=== PATIENT | male | born 1955 | race Caucasian/White ===

== ENCOUNTER 2020-03-08 21:08 | Observation (INO) ==
--- OUTSIDE RECORDS SUMMARY | 2020-03-08 21:12 | External Medical Summary | Continuity of Care Document ---
:1955 Author Name Hilario San, Provider Address Unavailable Unavailable , Care Team Providers Name Role Phone Nila San, Fernando Mcgovern Unavailable [email or web address] Unavailable Unavailable Unavailable Unavailable Unavailable Problems Active medical history not documented Allergies and Adverse Reactions Allergy history not documented Medications Medications not documented Procedures Procedures not documented Immunizations Immunizations not documented Plan of Treatment Planned Observations Planned Goals not documented Results No Known Results Results not documented Encounters Appointment; Fernando Dotson M.D. 25-Jan-2011 14:45 Encounter Diagnosis: Problem not documented
[2020-03-08] MEDS ORDERED: SODIUM CHLORIDE 0.9% 1000ML 500 ML IV ONE (21:22)
[2020-03-08] MEDS ORDERED: diphenhydrAMINE 50 MG/ML VIAL IV STA (21:22)
[2020-03-08] MEDS ORDERED: LORazepam 0.5 MG/1 ML VIAL IV STA (21:22)
--- NOTE | 2020-03-08 21:29 | Emergency Department Note ---
Impression & Plan Dizziness, Nausea, Diaphoresis, SOB (shortness of breath), Stroke-like symptoms ED Provider Note NAME: JOHN SHAFFER AGE: 65 SEX: M : 1955 ARRIVES VIA: Ambulance INFORMANT: [Patient][ems] ED PROVIDER(S): [Lonnie Robertson MD] Patient initially seen by me at 2114. CHIEF COMPLAINT: Nausea, shortness of breath HISTORY OF PRESENT ILLNESS: The patient is a 65-year-old male who states that about an hour and a half ago while sitting, he suddenly began feeling nauseated, he began to sweat and felt dizzy. He could barely lift his head without feeling even more dizzy. His chest became tight. On the way here, he was given IV Zofran with some improvement of symptoms. He feels better than before although still somewhat tight across the chest and somewhat dizzy. He feels somewhat short of breath. There was no chest pain. He has not been coughing, no cold like symptoms, no flu symptoms. The patient has not had weakness in 1 arm or 1 leg. He has not had difficulty with his speech, he does have some stiffness to his neck but he thinks it is because of the way he was moving his head and neck earlier. The patient has no history of coronary or cerebrovascular disease. REVIEW OF SYSTEMS: See HPI for pertinent positives and negatives. A total of ten systems were reviewed and were otherwise negative. PMHx/PSHx: See Below SOCIAL HISTORY: See Below. PHYSICAL EXAM: GENERAL: Patient is in mild distress, hyperventilating, seems anxious. HEENT: No acute trauma, normocephalic atraumatic, mucous membranes moist, no nasal congestion, no scleral icterus. No nystagmus. NECK: No stridor, no adenopathy, no meningismus, trachea is midline. There is some tenderness to palpate the posterior neck muscles, especially on the right. LUNGS: Clear to auscultation bilaterally, no wheeze, no rhonchi, breath sounds equal. Increased respiratory rate, hyperventilating. HEART: Without murmurs gallops or rubs, regular rate and rhythm. ABDOMEN: Soft, nontender, bowel sounds positive, no hernias, no peritonitis. EXTREMITIES: No cyanosis, full range of motion of all the joints without pain or difficulty, no signs for acute trauma. NEUROLOGIC: Oriented x 3, no acute motor or sensory deficits, no focal weakness. No speech slur or facial droop. No extremity drift, no cerebellar dysfunction, no pronator drift. SKIN: No rash, no jaundice, no diaphoresis. DIFFERENTIAL DIAGNOSIS: Infection, dehydration, metabolic abnormality, hypo/hyperglycemia, vertigo, stroke, TIA, electrolyte disturbance, anemia, hypoxia, cardiac sources, intra cerebral event, toxicologic, neurologic, as well as other pathologies. EMERGENCY DEPARTMENT COURSE/PROCEDURES: ECG: Indication was possible stroke. The ECG shows a normal sinus rhythm with a rate of 73. There is no ST elevation, no PVCs. The QTc is 436. Continuous Cardiac Monitoring: An order was placed for continuous cardiac monitoring. The monitor shows a rate of 85 with normal sinus rhythm. Critical Care Note: I have personally spent 41 minutes of critical care time in the direct management of this patient. This includes bedside care, interpretation of diagnostic studies, and testing, discussion with consultants, patient, and family members, and other required patient management activities. This 41 minutes is in excess of all separately billable procedures. MEDICAL DECISION MAKING: There is a normal white blood cell count. There is a normal hemoglobin and platelet count. There is no coagulopathy. No significant electrolyte abnormality or kidney failure. No worrisome liver enzyme elevation. ECG shows a sinus rhythm, no acute ischemia. Cardiac enzyme testing x1 is not consistent with acute cardiac injury. Urinalysis does not show infection. Chest x-ray does not show pneumonia or CHF. Brain CT shows no acute bleed or mass-effect. CT angio of the head and neck were performed, there was no aneurysm, no thrombosis, no significant stenosis. On exam, the patient did not have any focal neurologic findings. No cerebellar findings. He had a very difficult time with his balance and with any type of transfer from one stretcher to the other. In short, the patient is improved but not back to baseline. Patient may be suffering from vertigo, this certainly could be a subtle posterior circulation stroke affecting his cerebellar system. I am not co mfortable with discharge, further further work-up is warranted. The patient would benefit from an MRI and and observation. A neurology consult may be of benefit. The patient was given IV Ativan to help with his dizziness. He received IV Benadryl to help with his dizziness. He was given a 500 cc saline bolus. Patient does feel the medications administered helped his symptoms. I did speak with the patient, he is currently resting comfortably. He does not meet criteria for TPA. His stroke scale is 0. Further work-up is warranted. I did speak with case management. The on-call hospitalist was consulted. Past Med/Surg History Medical History No significant past medical history Social History Smoking Status: Former smoker Preferred Language: Azerbaijani Feels Safe at Home: Yes Allergies Allergies Allergy/AdvReac Type Severity Reaction Status Date / Time No Known Allergies Allergy Verified 03/08/20 22:16 Home Meds Home Medications Medication Instructions Recorded Confirmed No Known Home Medications 03/08/20 03/08/20 Results & Data (ED) Vital Signs Vital Signs - 24 hr 03/08/20 21:08 03/08/20 21:42 03/08/20 22:17 Temperature 36.5 C Temperature Source Oral Pulse Rate 74 74 87 Pulse Rate from SpO2 Sensor Respiratory Rate 26 H 20 17 Blood Pressure 132/89 134/81 113/74 Blood Pressure Mean 103 96 77 Pulse Oximetry 100 98 100 Oxygen Delivery Method Room Air Sepsis Recent Fever Within 48 Hours No Sepsis New/Unexplained Change in Mental Status No Sepsis Action Taken by Nursing No Action Required 03/08/20 22:30 03/08/20 22:31 03/08/20 23:00 Temperature Temperature Source Pulse Rate 85 85 79 Pulse Rate from SpO2 Sensor 83 87 Respiratory Rate 20 18 Blood Pressure 137/74 110/64 Blood Pressure Mean 97 78 Pulse Oximetry 99 100 99 Oxygen Delivery Method Sepsis Recent Fever Within 48 Hours Sepsis New/Unexplained Change in Mental Status Sepsis Action Taken by [facility] Medications Current Medication List: was personally reviewed by me Laboratory Data Attestation: I reviewed the patient's lab results. Result diagrams: 03/08/20 21:20 03/08/20 21:20 Lab Results 03/08/20 03/08/20 03/08/20 Range/Units 21:20 21:20 21:20 WBC 6.50 (4.8-10.8) K/uL RBC 4.50 L (4.7-6.1) M/uL Hgb 14.0 (14.0-18.0) g/dL Hct 40.3 L (42-52) % MCV 89.6 (80-100) fL MCH 31.1 (25-34) pg MCHC 34.7 (32-36) g/dL RDW Std Deviation 44.2 (36.4-46.3) fL RDW Coeff of Archie 13.4 (11.5-14.5) % Plt Count 212 (130-400) K/uL MPV 9.6 (7.4-10.4) fL Immature Gran % (Auto) 0.2 % Neut % (Auto) 59.4 % Lymph % (Auto) 32.2 % [place] % (Auto) 5.1 % Eos % (Auto) 2.8 % Baso % (Auto) 0.3 % Neut # (Auto) 3.87 (1.4-6.5) K/uL Lymph # (Auto) 2.09 (1.2-3.4) K/uL [place] # (Auto) 0.33 (0.11-0.59) K/uL Eos # (Auto) 0.18 (0-0.5) K/uL Baso # (Auto) 0.02 (0-0.2) K/uL Immature Gran # (Auto) 0.01 (0.00-0.02) K/uL PT 10.3 (9.0-12.0) Seconds INR 1.0 (0.9-1.1) APTT 25.0 (21.0-31.0) Seconds PTT Ratio 0.9 Sodium 142 (136-145) mmol/L Potassium 3.5 (3.5-5.1) mmol/L Chloride 110 H (98-107) mmol/L Carbon Dioxide 23 (21-32) mmol/L Anion Gap 9.0 (3-11) BUN 16 (7-18) mg/dl Creatinine 1.32 (0.6-1.4) mg/dl Est Cr Clr Drug Dosing 74.5 ml/min Est GFR ( Amer) 66.1 Est GFR (Non-Af Amer) 57.0 BUN/Creatinine Ratio 12.3 (10-20) Glucose 147 H (70-99) mg/dl POC Glucose (70-99) mg/dl Calcium 8.8 (8.5-10.1) mg/dl Magnesium 2.1 (1.8-2.4) mg/dl Total Bilirubin 0.3 (0.2-1) mg/dl AST 17 (15-37) U/L ALT 25 (12-78) U/L Alkaline Phosphatase 57 (45-117) U/L Troponin I < 0.015 (0-0.045) ng/ml Total Protein 7.2 (6.4-8.2) gm/dl Albumin 3.6 (3.4-5.0) gm/dl Globulin 3.6 (2.5-4.0) gm/dl Albumin/Globulin Ratio 1.0 (0.9-2) Urine Color Urine Appearance (Clear) Urine pH (4.5-7.5) Ur Specific Marshall (1.000-1.030) Urine Protein (Negative) Urine Glucose (UA) (Negative) Urine Ketones (Negative) Urine Blood (Negative) Urine Nitrite (Negative) Urine Bilirubin (Negative) Urine Urobilinogen (Negative) Ur Leukocyte Esterase (Negative) Blood Type Antibody Screen 03/08/20 03/08/20 03/08/20 Range/Units 21:48 21:49 22:42 WBC (4.8-10.8) K/uL RBC (4.7-6.1) M/uL Hgb (14.0-18.0) g/dL Hct (42-52) % MCV (80-100) fL MCH (25-34) pg MCHC (32-36) g/dL RDW Std Deviation (36.4-46.3) fL RDW Coeff of Archie (11.5-14.5) % Plt Count (130-400) K/uL MPV (7.4-10.4) fL Immature Gran % (Auto) % Neut % (Auto) % Lymph % (Auto) % [place] % (Auto) % Eos % (Auto) % Baso % (Auto) % Neut # (Auto) (1.4-6.5) K/uL Lymph # (Auto) (1.2-3.4) K/uL [place] # (Auto) (0.11-0.59) K/uL Eos # (Auto) (0-0.5) K/uL Baso # (Auto) (0-0.2) K/uL Immature Gran # (Auto) (0.00-0.02) K/uL PT (9.0-12.0) Seconds INR (0.9-1.1) APTT (21.0-31.0) Seconds PTT Ratio Sodium (136-145) mmol/L Potassium (3.5-5.1) mmol/L Chloride (98-107) mmol/L Carbon Dioxide (21-32) mmol/L Anion Gap (3-11) BUN (7-18) mg/dl Creatinine (0.6-1.4) mg/dl Est Cr Clr Drug Dosing ml/min Est GFR ( Amer) Est GFR (Non-Af Amer) BUN/Creatinine Ratio (10-20) Glucose (70-99) mg/dl POC Glucose 96 (70-99) mg/dl Calcium (8.5-10.1) mg/dl Magnesium (1.8-2.4) mg/dl Total Bilirubin (0.2-1) mg/dl AST (15-37) U/L ALT (12-78) U/L Alkaline Phosphatase (45-117) U/L Troponin I (0-0.045) ng/ml Total Protein (6.4-8.2) gm/dl Albumin (3.4-5.0) gm/dl Globulin (2.5-4.0) gm/dl Albumin/Globulin Ratio (0.9-2) Urine Color Yellow Urine Appearance Clear (Clear) Urine pH 6.5 (4.5-7.5) Ur Specific Marshall 1.039 H (1.000-1.030) Urine Protein Negative (Negative) Urine Glucose (UA) Negative (Negative) Urine Ketones Trace H (Negative) Urine Blood Negative (Negative) Urine Nitrite Negative (Negative) Urine Bilirubin Negative (Negative) Urine Urobilinogen Negative (Negative) Ur Leukocyte Esterase Negative (Negative) Blood Type B Positive Antibody Screen NEGATIVE Administered Medications Discontinued Medications Diphenhydramine HCl (Diphenhydramine 50 Mg/Ml Vial) 12.5 mg IV NOW STA Stop: 03/08/20 21:23 Last Admin: 03/08/20 21:39 Dose: 12.5 mg Documented by: [id number] Sodium Chloride (Nss 1000ml) 500 mls @ 999 mls/hr IV .Q31M ONE Stop: 03/08/20 21:52 Last Infusion: 03/08/20 22:17 Dose: 0 mls/hr Documented by: [id number] Admin: 03/08/20 21:39 Dose: 999 mls/hr Documented by: [id number] Lorazepam (Ativan) 0.5 mg in 1 mls @ 1 mls/min IV NOW STA Stop: 03/08/20 21:23 Last Admin: 03/08/20 21:39 Dose: 1 mls/min Documented by: [id number] Ioversol (Optiray 320 125ml) 119 ml IV ONCE ONE Stop: 03/08/20 22:05 Last Admin: 03/08/20 22:05 Dose: 119 ml Documented by: [id number] Imaging Data Attestation: I personally reviewed and interpreted this imaging study as follows: My Impression: Chest film: There is no mediastinal widening, pneumonia or pneumothorax. No free air. Radiologist's Impression: Brain CT: There is no intracranial hemorrhage or mass- effect, there is no edema. No evidence for acute territorial infarct. No skull fracture. The sinuses and mastoid air cells are clear. CT angio of the head: Patent intracranial circulation. No central large vessel occlusion. No aneurysm. CT angio of the neck: There is no evidence for high-grade right ICA stenosis. Evaluation of the right ICA is limited by motion artifact. There may be some mild stenosis of the proximal right ICA although this appearance is favored to be secondary to motion. The common carotid arteries are patent and normal in caliber. There is conventional aortic arch anatomy. The left ICA is patent and normal in caliber. The vertebral arteries are patent and normal in caliber. Discharge Plan Visit Data Chief Complaint: Cardiac Assessment Stated Complaint: NAUSEA, SOB, DIZZINESS ED Provider: Lonnie Robertson Discharge Problem: Dizziness, Nausea, Diaphoresis, SOB (shortness of breath), Stroke-like symptoms Patient Disposition: Admitted As Inpatient Condition: Good Forms Stand Alone Forms: My Per[employer] Prescriptions Prescriptions: No Action No Known Home Medications RF: 0 Referrals Referrals: PCP,NO [Primary Care Provider] -
[2020-03-08 21:35] LABS: Basophils # (auto) 0.02 K/uL (0-0.2); Basophils % (auto) 0.3 %; Eosinophils # (auto) 0.18 K/uL (0-0.5); Eosinophils % (auto) 2.8 %; Hematocrit (blood only) 40.3 % (42-52); Immature Granulocytes # (auto) 0.01 K/uL (0.00-0.02); Immature Granulocytes % (auto) 0.2 %; Lymphocytes # (auto) 2.09 K/uL (1.2-3.4); Lymphocytes % (auto) 32.2 %; Mean Corpuscular Hemoglobin 31.1 pg (25-34); Mean Corpuscular Hgb Conc 34.7 g/dL (32-36); Mean Corpuscular Volume 89.6 fL (80-100); Mean Platelet Volume 9.6 fL (7.4-10.4); Monocytes # (auto) 0.33 K/uL (0.11-0.59); Monocytes % (auto) 5.1 %; Neutrophils # (auto) 3.87 K/uL (1.4-6.5); Neutrophils % (auto) 59.4 %; Platelet Count 212 K/uL (130-400); RDW Coefficient of Variation 13.4 % (11.5-14.5); RDW Standard Deviation 44.2 fL (36.4-46.3)
[2020-03-08 21:44] LABS: Alanine Aminotransferase 25 U/L (12-78); Albumin Level 3.6 gm/dl (3.4-5.0); Aspartate Aminotransferase 17 U/L (15-37); BUN Creatinine Ratio 12.3 (10-20); Blood Urea Nitrogen 16 mg/dl (7-18); Calcium 8.8 mg/dl (8.5-10.1); Carbon Dioxide 23 mmol/L (21-32); Chloride 110 mmol/L (98-107); Creatinine Clr Calc Pharmacy 74.5 ml/min; Est GFR (African American) 66.1; Glucose 147 mg/dl (70-99); Magnesium 2.1 mg/dl (1.8-2.4); Potassium 3.5 mmol/L (3.5-5.1); Sodium 142 mmol/L (136-145)
[2020-03-08 21:45] LABS: Partial Thromboplastin Ratio 0.9; Prothrombin Time 10.3 Seconds (9.0-12.0)
[2020-03-08 21:49] LABS: Alkaline Phosphatase 57 U/L (45-117); Bilirubin,Total 0.3 mg/dl (0.2-1); Globulin 3.6 gm/dl (2.5-4.0); Total Protein 7.2 gm/dl (6.4-8.2); Troponin I < 0.015 ng/ml (0-0.045)
[2020-03-08] MEDS ORDERED: OPTIRAY 320 125ml IV ONE (22:04)
--- NOTE | 2020-03-08 22:48 | CT Scan Report ---
CT OF THE HEAD WITHOUT CONTRAST CLINICAL HISTORY: Stroke Like Symptoms COMPARISON STUDY: No previous studies for comparison. TECHNIQUE: Helical axial images of the head were obtained without IV contrast. Automated exposure con trol was utilized for the study. A dose lowering technique was utilized adhering to the principles o f ALARA. FINDINGS: No acute intracranial hemorrhage, midline shift or mass effect is present. The ventricular system is unremarkable. The basal cisterns are patent. No extra-axial collections are present. There are no findings to suggest acute dural sinus thrombosis or acute territorial infarct. No significant calvarial abnormalities are present. Visualized portions of the sinuses and mastoid air cells are alex ar. IMPRESSION: No acute intracranial findings. ACT 112: Negative or not required by law. Electronically signed by: Espinoza Doyle M.D. 03/08/2020 10:46 PM
[2020-03-08 22:51] LABS: Appearance Urine Clear (Clear); Bilirubin Urine Negative (Negative); Blood Urine Negative (Negative); Color Urine Yellow; Glucose Urine UA Negative (Negative); Ketones Urine Trace (Negative); Leukocyte Esterase Urine Negative (Negative); Nitrite Urine Negative (Negative); Protein Urine Negative (Negative); Specific Gravity Urine 1.039 (1.000-1.030); Urobilinogen Urine Negative (Negative); pH Urine 6.5 (4.5-7.5)
--- NOTE | 2020-03-08 22:54 | CT Scan Report ---
CT ANGIOGRAPHY OF THE NECK WITH CONTRAST CLINICAL HISTORY: Stroke Like Symptoms COMPARISON STUDY: No previous studies for comparison. Technique: CT angiography of the carotid and vertebral arteries was obtained using [employer] 320 IV and 3D reconstruction on an independent workstation. NASCET criteria was utilized. Automated exposure c ontrol was utilized for the study. A dose lowering technique was utilized adhering to the principles of ALARA. Findings: Lung apices are unremarkable. There is no cervical lymphadenopathy. There is no cervical sp ine fracture. Evaluation of the proximal right internal carotid artery is suboptimal given motion art ifact. Have, no definite stenosis is noted. The bilateral common carotid, cervical internal carotid v ertebral arteries are patent. No dissection. Minimal calcified plaque within the proximal left phd internship al carotid artery is noted. The CTA of the head will be reported separately. Epiglottis is normal. IMPRESSION: Suboptimal evaluation of the proximal right internal carotid artery due to motion artifact. No defini te stenosis or dissection within the major vessels of the neck. ACT 112: Negative or not required by law. Electronically signed by: Espinoza Doyle M.D. 03/08/2020 10:53 PM
--- NOTE | 2020-03-08 22:58 | CT Scan Report ---
CTA ANGIOGRAPHY OF THE HEAD CLINICAL HISTORY: Stroke Like Symptoms COMPARISON STUDY: No previous studies for comparison. TECHNIQUE: Helical axial images of the head were obtained following uneventful intravenous administr ation of 119 cc of Optiray 320. Sagittal and coronal reconstructions were viewed as well as maximal i ntensity projections on an independent 3-D workstation. Automated exposure control was utilized for the study. A dose lowering technique was utilized adhering to the principles of ALARA. CT DOSE: 1145.18 mGy.cm FINDINGS: No acute intracranial hemorrhage, midline shift or mass effect is present. Ventricular syst em is normal. Basal cisterns are patent. There are no extra-axial collections. The bilateral M1, M2, A1 and A2 segments are patent. There is no central vessel occlusion. No intracranial aneurysm or diss ection is noted. The posterior circulation is intact. IMPRESSION: Unremarkable CTA of the head. No central vessel occlusion. No intracranial aneurysm. ACT 112: Negative or not required by law. Electronically signed by: Espinoza Doyle M.D. 03/08/2020 10:56 PM
--- NOTE | 2020-03-09 00:55 | History & Physical Report ---
Date of Service March 09, 2020 Assessment & Plan (1) Stroke-like symptoms: Strokelike symptoms- Had already resolved prior to arrival in ED, and patient felt back to his baseline. The patient will be admitted to telemetry for serial cardiac enzymes, serial EKG's, cardiac rhythm monitoring and a 2-D echocardiogram with Dopplers. Stroke without TPA order set CT of head without contrast was negative. CTA of head and neck was negative MRI of brain ordered and pending Consult PT/OT/neurology Check hemoglobin A1c and fasting lipid panel Present on Admission?: Yes (2) Dizziness: Resolved Present on Admission?: Yes (3) SOB (shortness of breath): Resolved Present on Admission?: Yes (4) Diaphoresis: Resolved Present on Admission?: Yes (5) Nausea: Resolved. We did entertain the idea of possible toxin induced food poisoning, however, patient symptoms resolved unusually quickly for this diagnosis. Present on Admission?: Yes History of Present Illness Chief Complaint: The patient presents to the emergency department with the acute onset of nausea, sweats, dizziness and feelings of disorientation, barely able to lift his head without being more dizzy, 1/2-hour after eating, and about an hour and half prior to arrival. Primary Care Provider: NO PCP The patient is a 65-year-old male with no significant past medical history, on no medications, presents to the emergency department with the above symptoms. He is not had these symptoms in the past. Reports that they occurred about 1/2- hour after eating a post Reynolds meal of ham, mashed potatoes, corn and associated foods. He denies any focal weakness in arms or legs, he denies any loss of bowel or bladder control. He has not taking any prescription or dzei-kkf-ogqyehd medications. He denies any recent alcohol intake. Allergies Allergy/AdvReac Type Severity Reaction Status Date / Time No Known Allergies Allergy Verified 03/08/20 22:16 Home Medications Medication Instructions Recorded Confirmed Type No Known Home Medications 03/08/20 03/08/20 History Past Med/Surg History Medical History No significant past medical history Social History Smoking Status: Never smoker Do You Dip or Chew Tobacco: Yes; Hx Alcohol Use: No Hx Substance Use: No Preferred Language: Eritrean Communication Ability: Effective Talkback Host Required: No Beliefs That Will Affect Care: None Current Living Situation: Spouse Other Information That Helps Us Care for You: No Feels Safe at Home: Yes Safety Concerns: Feels Safe At This Time Assistive Devices: Denture - Upper, Denture - Lower and Glasses Assistive Devices Comment: partial upper and lower dentures Review of Systems Review of Systems: The patient denies chest pain, palpitations, shortness of breath, dyspnea on exertion, cough, lower extremity swelling, sore throat, fevers, chills, nausea, vomiting, diarrhea , constipation, abdominal pain, pelvic pain, blood in urine or stool, dysuria, urinary frequency or urgency, memory loss, loss of consciousness, rash, abnormal bruising or bleeding, focal or generalized weakness, numbness or tingling in arms or legs, generalized arthralgias or myalgias, back or neck pain, or night sweats. The review of systems is otherwise negative other than for that already noted above, and at least 10 systems have been reviewed. Physical Exam Physical Exam: The patient is awake, alert and oriented 3, well developed and well nourished, normocephalic and atraumatic, lying in bed and in no acute distress. HEENT--PERRL, EOMI, mucous membranes and oropharynx dry. Neck--supple. No JVD. No bruits. Thyroid normal, trachea midline, no adenopathy. Heart--normal S1 and S2. No murmurs, rubs or gallops. Lungs--clear bilaterally, no respiratory distress, no accessory muscle use. Abdomen--normal bowel sounds and soft. Nontender. Nondistended. Obese. Extremities--no cyanosis or clubbing. No edema. Dermatologic--normal skin turgor, normal color, no abnormal lymph nodes, no rash. Neurologic--cranial nerves II through XII grossly intact. Rheumatologic--normal range of motion. Psychiatric--normal affect. Results & Data Results & Data ([facility]) Vital Signs (Past 12 Hours) Vital Signs Temp Pulse Resp BP Pulse Ox 03/08/20 23:30 75 18 117/66 97 03/08/20 23:00 79 18 110/64 99 03/08/20 22:31 85 20 137/74 100 12/26/20 22:30 85 99 03/08/20 22:17 87 17 113/74 100 03/08/20 21:42 74 20 134/81 98 03/08/20 21:08 97.7 F 74 26 H 132/89 100 Laboratory Results Laboratory Results WBC 6.50 K/uL (4.8-10.8) 03/08/20 21:20 RBC 4.50 M/uL (4.7-6.1) L 03/08/20 21:20 Hgb 14.0 g/dL (14.0-18.0) 03/08/20 21:20 Hct 40.3 % (42-52) L 03/08/20 21:20 MCV 89.6 fL (80-100) 03/08/20 21: MCH 31.1 pg (25-34) 03/08/20 21: MCHC 34.7 g/dL (32-36) 03/08/20 21:20 RDW Std Deviation 44.2 fL (36.4-46.3) 03/08/20 21:20 RDW Coeff of Archie 13.4 % (11.5-14.5) 03/08/20 21:20 Plt Count 212 K/uL (130-400) 03/08/20 21:20 MPV 9.6 fL (7.4-10.4) 03/08/20 21:20 Immature Gran % (Auto) 0.2 % 03/08/20 21:20 Neut % (Auto) 59.4 % 03/08/20 21:20 Lymph % (Auto) 32.2 % 03/08/20 21:20 [place] % (Auto) 5.1 % 03/08/20 21:20 Eos % (Auto) 2.8 % 03/08/20 21:20 Baso % (Auto) 0.3 % 03/08/20 21:20 Neut # (Auto) 3.87 K/uL (1.4-6.5) 03/08/20 21:20 Lymph # (Auto) 2.09 K/uL (1.2-3.4) 03/08/20 21:20 [place] # (Auto) 0.33 K/uL (0.11-0.59) 03/08/20 21:20 Eos # (Auto) 0.18 K/uL (0-0.5) 03/08/20 21:20 Baso # (Auto) 0.02 K/uL (0-0.2) 03/08/20 21:20 Immature Gran # (Auto) 0.01 K/uL (0.00-0.02) 03/08/20 21:20 PT 10.3 Seconds (9.0-12.0) 03/08/20 21:20 INR 1.0 (0.9-1.1) 03/08/20 21:20 APTT 25.0 Seconds (21.0-31.0) 03/08/20 21:20 PTT Ratio 0.9 03/08/20 21:20 Sodium 142 mmol/L (136-145) 03/08/20 21:20 Potassium 3.5 mmol/L (3.5-5.1) 03/08/20 21:20 Chloride 110 mmol/L (98-107) H 03/08/20 21:20 Carbon Dioxide 23 mmol/L (21-32) 03/08/20 21:20 Anion Gap 9.0 (3-11) 03/08/20 21:20 BUN 16 mg/dl (7-18) 03/08/20 21:20 Creatinine 1.32 mg/dl (0.6-1.4) 03/08/20 21:20 Est Cr Clr Drug Dosing 74.5 ml/min 03/08/20 21:20 Est GFR ( Amer) 66.1 03/08/20 21:20 Est GFR (Non-Af Amer) 57.0 03/08/20 21:20 BUN/Creatinine Ratio 12.3 (10-20) 03/08/20 21:20 Glucose 147 mg/dl (70-99) H 03/08/20 21:20 POC Glucose 96 mg/dl (70-99) 03/08/20 21:48 Calcium 8.8 mg/dl (8.5-10.1) 03/08/20 21:20 Magnesium 2.1 mg/dl (1.8-2.4) 03/08/20 21:20 Total Bilirubin 0.3 mg/dl (0.2-1) 03/08/20 21:20 AST 17 U/L (15-37) 03/08/20 21:20 ALT 25 U/L (12-78) 12/26/20 21:20 Alkaline Phosphatase 57 U/L (45-117) 03/08/20 21:20 Troponin I < 0.015 ng/ml (0-0.045) 03/08/20 21:20 Total Protein 7.2 gm/dl (6.4-8.2) 03/08/20 21:20 Albumin 3.6 gm/dl (3.4-5.0) 03/08/20 21:20 Globulin 3.6 gm/dl (2.5-4.0) 03/08/20 21:20 Albumin/Globulin Ratio 1.0 (0.9-2) 03/08/20 21:20 Urine Color Yellow 03/08/20 22:42 Urine Appearance Clear (Clear) 03/08/20 22:42 Urine pH 6.5 (4.5-7.5) 03/08/20 22:42 Ur Specific [place] 1.039 (1.000-1.030) H 03/08/20 22:42 Urine Protein Negative (Negative) 03/08/20 22:42 Urine Glucose (UA) Negative (Negative) 03/08/20 22:42 Urine Ketones Trace (Negative) H 03/08/20 22:42 Urine Blood Negative (Negative) 03/08/20 22:42 Urine Nitrite Negative (Negative) 03/08/20 22:42 Urine Bilirubin Negative (Negative) 03/08/20 22:42 Urine Urobilinogen Negative (Negative) 03/08/20 22:42 Ur Leukocyte Esterase Negative (Negative) 03/08/20 22:42 SARS-CoV-2 Ag (Rapid) Negative (Negative) 03/08/20 23:37 Blood Type B Positive 03/08/20 21:49 Antibody Screen NEGATIVE 03/08/20 21:49 Diagnostic Findings [facility] Patient: JOHN SHAFFER (Male) : 59 Status: ER Date: 03/08/20 22:20 Room #: History: PT WAS WATCHING TV ON COUCH, REPORTS FEELING SWEATY AND SOB OPTIRAY 320 119ML EK/EW Slices: 59 Priors: Tech: Lonnie Orozco @ [phone] Exams: CT HEAD Contrast: Accession Numbers: [id number] Preliminary Findings Only See Final Report For Complete Findings CT HEAD: No ICH, mass-effect, or edema. No CT evidence of acute territorial infarct. No skull fracture. Sinuses and mastoid air cells are clear. Radiologist: Saida Troncoso M.D. Study ready at 22:24 and initial results transmitted at 22:32 Communications: Clear Time Type Notes 03/08/20 22:36 Call Doctor Regarding Stroke, called Dr. Robertson on 03/08 22:36 (- 05:00) *This report constitutes a preliminary interpretation only. Non-acute findings felt to be unrelated to the clinical presentation may not be discussed in this report. The study will be interpreted and a final report will be generated by the local Radiologist the following shift. To reach the hospital radiology department call [phone]. If a discrepancy is found between the preliminary and final interpretations of this study, please notify us via our Client Portal at [email or web address].You can also fax this report with a description of the discrepancy, or include the final report, to our daytime fax number [phone].If faxing, please indicate the severity of discrepancy using one of the following categories: [ ] 1 - Agree/Informational [ ] 2 - Unlikely to Affect Management [ ] 3 - Possible Eventual Change of Management [ ] 4 - Probable Immediate Change of Management For all other patient related information, please fax us at [phone]. [id number] [facility] Patient: JOHN SHAFFER (Male) : 59 Status: ER Date: 03/08/20 22:20 Room #: History: PT WAS WATCHING TV ON COUCH, REPORTS FEELING SWEATY AND SOB OPTIRAY 320 119ML EK/EW Slices: 573 Priors: Tech: Lonnie Orozco @ [id number] Exams: CTA HEAD Contrast: IV Amt: 119ML Accession Numbers: [id number] Preliminary Findings Only See Final Report For Complete Findings CTA HEAD: Patent intracranial circulation. No central large vessel occlusion. No aneurysm. Radiologist: Saida Troncoso M.D. Study ready at 22:24 and initial results transmitted at 22:32 Communications: Clear Time Type Notes 03/08/20 22:36 Call Doctor Regarding Stroke, called Dr. Robertson on 03/08 22:36 (- 05:00) *This report constitutes a preliminary interpretation only. Non-acute findings felt to be unrelated to the clinical presentation may not be discussed in this report. The study will be interpreted and a final report will be generated by the local Radiologist the following shift. To reach the hospital radiology department call [phone]. If a discrepancy is found between the preliminary and final interpretations of this study, please notify us via our Client Portal at [email or web address].You can also fax this report with a description of the discrepancy, or include the final report, to our daytime fax number [phone].If faxing, please indicate the severity of discrepancy using one of the following categories: [ ] 1 - Agree/Informational [ ] 2 - Unlikely to Affect Management [ ] 3 - Possible Eventual Change of Management [ ] 4 - Probable Immediate Change of Management For all other patient related information, please fax us at [phone]. [id number] [facility] Patient: JOHN SHAFFER (Male) : 59 Status: ER Date: 03/08/20 22:21 Room #: History: PT WAS WATCHING TV ON COUCH, REPORTS FEELING SWEATY AND SOB OPTIRAY 320 119ML EK/EW Slices: 795 Priors: Tech: Lonnie Orozco @ [id number] Exams: CTA NECK Contrast: IV Amt: 119 Accession Numbers: [id number] Preliminary Findings Only See Final Report For Complete Findings CTA NECK: Conventional aortic arch anatomy. Common carotid arteries are patent and normal in caliber. Evaluation of the right ICA is limited by motion artifact. There may be mild stenosis of the proximal right ICA, although this appearance is favored to be secondary to motion. There is no evidence of high-grade right ICA stenosis. Left ICA is patent and normal in caliber. Vertebral arteries are patent and normal in caliber. Radiologist: Saida Troncoso M.D. Study ready at 22:24 and initial results transmitted at 22:32 Communications: Clear Time Type Notes 03/08/20 22:36 Call Doctor Regarding Stroke, called Dr. Robertson on 03/08 22:36 (- 05:00) *This report constitutes a preliminary interpretation only. Non-acute findings felt to be unrelated to the clinical presentation may not be discussed in this report. The study will be interpreted and a final report will be generated by the local Radiologist the following shift. To reach the hospital radiology department call [phone]. If a discrepancy is found between the preliminary and final interpretations of this study, please notify us via our Client Portal at [email or web address]: [email or web address], [email or web address].You can also fax this report with a description of the discrepancy, or include the final report, to our daytime fax number [phone].If faxing, please indicate the severity of discrepancy using one of the following categories: [ ] 1 - Agree/Informational [ ] 2 - Unlikely to Affect Management [ ] 3 - Possible Eventual Change of Management [ ] 4 - Probable Immediate Change of Management For all other patient related information, please fax us at [phone]. [id number] Code Status & VTE Plan Code Status Full code VTE Prophylaxis Plan VTE Prophylaxis will be ordered: Yes PG Care Time/CCT Total # of Minutes Spent Total Time Spent with Patient: Total time spent is greater than 50% in coordination of care (as documented) at patient's floor/unit and/or counseling patient: Coding Level of Care Code 98178 OBS Care - Level 3 Diagnoses Stroke-like symptoms R29.90 Dizziness R42 SOB (shortness of breath) R06.02 Diaphoresis R61 Nausea R11.0
[2020-03-09] MEDS ORDERED: ALUMINUM/MAGNESIUM SUSP 30 ML UDC PO PRN (01:39)
[2020-03-09] MEDS ORDERED: ONDANSETRON INJ 2 MG/ML 2 ML VIAL IV PRN (01:39)
[2020-03-09] MEDS ORDERED: ACETAMINOPHEN 325 MG TAB PO PRN (01:39)
[2020-03-09] MEDS ORDERED: MAGNESIUM HYDROXIDE SUSP 30 ML UDC PO PRN (01:39)
[2020-03-09] MEDS ORDERED: PHARMACIST DISCHARGE MED REC CONSULT PRN (01:39)
--- NOTE | 2020-03-09 07:27 | XRay Report ---
XR chest 1V portable CLINICAL HISTORY: Stroke Like Symptoms COMPARISON STUDY: No previous studies for comparison. FINDINGS: The cardiac and mediastinal contours are normal. There is no evidence of focal pulmonary co nsolidation. There is no evidence of failure. No pleural effusions are visualized.[ IMPRESSION: No active disease in the chest. ACT 112: Negative or not required by law. Electronically signed by: Jalil Hair M.D. 03/09/2020 7:26 AM
[2020-03-09] MEDS: ASPIRIN 81 MG ECTAB PO SCH (08:25)
[2020-03-09] MEDS: ATORVASTATIN 40 MG TAB PO SCH (08:25)
--- NOTE | 2020-03-09 08:39 | Hospitalist Progress Note ---
Date of Service March 09, 2020 Assessment & Plan (1) Stroke-like symptoms: Acute onset of nausea, sweats, dizziness, and feelings of disorientation's, barely able to lift his head without being more dizzy this occurred approximately half an hour after eating. He was evaluated in the [facility] room and admitted for stroke without TPA evaluation. Serial cardiac enzymes are negative, serial EKGs were negative, cardiac rhythm monitoring was negative, 2D echo showed a normal ejection fraction, negative bubble study, CT of the head without contrast was negative, CT of the head and neck was negative, neurology was consulted recommending MRI brain and no additional neurological testing with follow-up as an outpatient. -Follow-up with outpatient neurology -Outpatient meclizine prescription -Patient endorsed feeling stressed, consider consultation with psychiatry -Started on atorvastatin 40 mg daily -Unable to complete brain MRI today secondary to patient's anxiety, -Repeat tomorrow, 1.5 mg as needed Ativan ordered (2) Dizziness: Resolved (3) SOB (shortness of breath): Upon relating his history to us the patient placed greater emphasis on her shortness of breath, given his family history of abdominal aortic aneurysms, and blood clots, and his presentation we felt it was only judicious to obtain further work-up including a CTA with a dissection protocol. -Follow-up CTA with dissection protocol (4) Diaphoresis: Resolved (5) Nausea: Resolved. We did entertain the idea of possible toxin induced food poisoning, however, patient symptoms resolved unusually quickly for this diagnosis. Rogelio Hunt MD PGY 3, FCM This chart was completed utilizing [employer] voice recognition software. Grammatical errors, random word insertions, pronoun errors, and in complete sentences are an occasional consequence of the system. Any questions or concerns about the content, text, or information contained within the body of this dictation should be addressed directly to the physician for clarification. Admission and Anticipated Discharge Date Admission Date: March 09, 2020 Supervising Physician Co-Signing Physician Notes Attending Attestation: Pt seen/examined, chart reviewed, care plan d/w Dr Rogelio Hunt. I agree w/ the motley components of his documentation. During bedside rounds patient reported that during his dizzy spell he had 1 hour of dyspnea along with vague chest tightness. He was also very diaphoretic. Dizziness does seem like it was vertigo in nature. He has had none of these symptoms today. Strong fam hx of aortic aneursym. VSS, afebrile gen - NAD HEENT - EOMI, no nystagmus heart - RRR s1 s2 no murmur lungs - CTA b/l abd - soft NT ext - no edema neuro - no ataxia f/n/f; strength 5/5 x 4 exts; gait w/o ataxia all studies reviewed (normal) labs wnl tele overnight wnl A/P: 1. vertigo - likely peripheral in origin (inner ear); neuro exam wnl; doubt central but brain MRI pending. meclizine prn. 2. dyspnea x 1 hour, vague chest pain - trop neg x 3; I am having difficult time linking #1 and #2 together. Given fam hx of aortic aneursym will obtain CTA chest dissection protocol - r/o dissection, PE, etc. Consider outpatient stress test if CTA neg as patient reports chronic CRAIG. await CTA chest await brain MRi no d/c at this time monitor overnight Mk Martinez MD Subjective Patient lying in bed in no acute distress, reports all of his symptoms are resolved. Patient related in HPI to us which was similar to his presenting H&P. However when recalling his steroid as he place more emphasis on shortness of breath, and chest pressure and chest pain. Furthermore we elicited a history of blood clots and abdominal aortic aneurysms in his family. After conversation with the patient and given his findings of shortness of breath yesterday we collectively came to the decision that it was best for him to stay tonight and obtain further imaging studies. All questions have been answered, no acute concerns Physical Exam Physical Exam: General: Lying in bed comfortably in no acute distress HEENT: Normocephalic atraumatic Neck: Normal to visual inspection, trachea midline, did not appreciate significant JVD Cardiac:normal S1, normal S2, regular rate and rhythm, negative pedal edema, negative calf tenderness, did not appreciate any significant murmurs rubs or gallops Respiratory: Clear to auscultation bilaterally with symmetrical chest expansion I did not appreciate significant wheezes, rales, rhonchi, GI: Soft nontender nondistended MSK: Moves all extremities, strength intact, proprioception intact Neuro: Alert and oriented x4, cranial nerves II through XII grossly intact, sensation grossly intact, proprioception grossly intact, cerebellar function grossly intact, vision grossly intact Psych: Calm and cooperative Results & Data Results & Data ([facility]) Vital Signs (Past 12 Hours) Vital Signs Temp Pulse Pulse Resp BP BP Pulse Ox 03/09/20 07:51 61 03/09/20 07:46 36.5 C 76 18 117/69 97 03/09/20 01:52 68 03/09/20 01:39 36.5 C 68 18 127/74 98 03/09/20 01:00 69 15 107/76 95 03/09/20 00:30 67 18 118/70 96 03/09/20 00:00 71 24 115/73 97 03/08/20 23:30 75 18 117/66 97 03/08/20 23:00 79 18 110/64 99 03/08/20 22:31 85 20 137/74 100 03/08/20 22:30 85 99 03/08/20 22:17 87 17 113/74 100 03/08/20 21:42 74 20 134/81 98 03/08/20 21:08 36.5 C 74 26 H 132/89 100 Laboratory Results Abnormal lab results 03/08/20 03/08/20 03/08/20 Range/Units 21:20 21:20 22:42 RBC 4.50 L (4.7-6.1) M/uL Hct 40.3 L (42-52) % Chloride 110 H (98-107) mmol/L Glucose 147 H (70-99) mg/dl Ur Specific [place] 1.039 H (1.000-1.030) Urine Ketones Trace H (Negative) 03/09/20 03/09/20 Range/Units 10:17 10:17 RBC 4.56 L (4.7-6.1) M/uL Hct 41.6 L (42-52) % Chloride 109 H (98-107) mmol/L Glucose (70-99) mg/dl Ur Specific [place] (1.000-1.030) Urine Ketones (Negative) Medications Administered Current Inpatient Medications Acetaminophen (Acetaminophen 325 Mg Tab) 650 mg PO Q4H PRN PRN Reason: Pain or Fever Stop: 04/08/20 01:38 Al Hydrox/Mg Hydrox/Simethicone (Aluminum/Magnesium Susp 30 Ml Udc) 15 ml PO Q4H PRN PRN Reason: Dyspepsia Stop: 04/08/20 01:38 Aspirin (Aspirin 81 Mg Ectab) 81 mg PO [facility] Stop: 04/08/20 08:59 Last Admin: 03/09/20 08:25 Dose: 81 mg Documented by: Atorvastatin Calcium (Atorvastatin 40 Mg Tab) 40 mg PO [facility] Stop: 04/08/20 08:59 Last Admin: 03/09/20 08:25 Dose: 40 mg Documented by: Lorazepam (Ativan) 1.5 mg in 3 mls @ 3 mls/min IV UD PRN PRN Reason: other Stop: 04/08/20 17:36 Lorazepam (Lorazepam 0.5 Mg Tab) 0.5 mg PO ONE PRN PRN Reason: Anxiety Stop: 04/08/20 09:57 Last Admin: 03/09/20 16:28 Dose: 0.5 mg Documented by: Magnesium Hydroxide (Magnesium Hydroxide Susp 30 Ml Udc) 30 ml PO Q12H PRN PRN Reason: Constipation Stop: 04/08/20 01:38 Miscellaneous Information (Pharmacist Discharge Med Rec Consult) 1 ea N/A UD PRN PRN Reason: Consult Stop: 04/08/20 01:38 Ondansetron HCl (Ondansetron Inj 2 Mg/Ml 2 Ml Vial) 4 mg IV Q6H PRN PRN Reason: Nausea Stop: 04/08/20 01:38 Resident Activity Tracking Resident Involvement: Resident Care Provided Care Provided: Adult Hospital Medicine
[2020-03-09] MEDS ORDERED: LORazepam 0.5 MG TAB PO PRN (09:58)
--- NOTE | 2020-03-09 10:07 | Neurology Consultation ---
Date of Consultation March 09, 2020 Assessment & Plan (1) Dizziness: (2) Diaphoresis: (3) Nausea: (4) Lumbar radicular pain: (5) Neck pain: patient had the acute onset of nausea, diaphoresis and vertiginous symptoms yesterday evening, accompanied by chest tightness and some shortness of breath. By today's symptoms have essentially resolved and he is not having any vertigo. On examination his normal neurologically with no focal neurologic findings meningeal signs, or encephalopathy. CT scan of the head and CT angiography of the head and neck were unremarkable. Overall I suspect this is an inner ear issue , which created some positional vertigo. I do not suspect a stroke or TIA. Nevertheless this cannot entirely be excluded. The patient does have some neck pain which is nonspecific and likely musculoskeletal. In addition he has S1 radicular symptoms ( versus sciatica) Recommendations: 1. MRI of the brain with attention to the posterior fossa and inner ears. 2. I see no need for additional neurologic testing at this time. 3. I can followup as an outpatient, for his admitting symptoms as well as his left lower extremity symptoms. Consider EMG and nerve conduction studies. overall, I spent a total of 60 minutes with this case including review of recor ds, review of CT films, direct evaluation the patient at bedside, in discussion of the case with the patient at bedside and the resident Dr. Hunt , including differential diagnosis and treatment options. History of Present Illness Reason for Consultation: Patient is a 65-year-old, who I was asked to see at the request of Dr. Euceda, for neurologic consultation regarding stroke-like symptoms/ new onset dizziness Requesting Physician: Dr. Euceda Attending Physician: Mk Martinez History of Present Illness patient has no significant medical or surgical problems and is on no medication on a regular basis. Does have 1 year history of intermittent pain down the back of his left leg from his low back to the foot. He has no weakness in the leg but does notice some numbness occasionally in the toes. Takes [id number] medication for pain which helps. The patient was in his usual state of when around 7 p.m. March 08, approximately 30 minutes after eating supper he was sitting in a chair watching TV in a relaxed setting. He had the sudden onset of diaphoresis and nausea without. There was no pain or. [place] that his chest was tight centrally and was a little short of Breath. He thought if he went outside in the air he would feel better. Standing outside however he felt worse. He was lightheaded somewhat was standing in any time he moved his head, particularly extending his neck looking upward, he felt woozy vertiginous. The environment was moving. As long as he sat and kept his head down he did not have any dizziness or vertigo. The worst of this lasted about an hour but he still had symptoms on route to the hospital. He was given meclizine and this helped considerably. By the time he got to the emergency room he was markedly improved but still had some lingering symptoms. Patient has no history of confusion or speech issues with this episode, vision, incontinence, weakness, pain or headache, hearing loss, tinnitus, or ear pain. He does have a little bit of sore/stiff neck particularly on the left and has had balance problems because the vertiginous feelings. he arrived to the emergency room March 08 at 2108, with a temperature 36.5, pulse 74 regular, respiratory rate 26, blood pressure 132/80, and O2 saturation 100 percent. On examination he was a little anxious and was hyperventilating some. He had some neck tenderness and stiffness but no nystagmus or other focal neurologic findings. CBC and Chem profile were unremarkable except for a glucose of 147. CT scan of the head was unremarkable. CT angiography of the head and neck were unremarkable as well. This morning the patient can walk well and is not having any dizziness or vertigo with head movement. His neck is slightly stiff and he has some slight chest tightness as well. He is not short of breath. Allergies Allergy/AdvReac Type Severity Reaction Status Date / Time No Known Allergies Allergy Verified 03/08/20 22:16 Home Medications Medication Instructions Recorded Confirmed Type No Known Home Medications 03/08/20 03/08/20 History Patient History Medical History (Updated 03/09/20 @ 10:00 by Oleksandr Robertson MD) No significant past medical history Surgical History (Updated 03/09/20 @ 09:56 by Oleksandr Robertson MD) H/O knee surgery Family History (Updated 03/09/20 @ 09:56 by Oleksandr Robertson MD) Mother No problems noted. Father , noted age 72 of pulmonary disease Lung disease Social History (Updated 03/09/20 @ 09:58 by Oleksandr Robertson MD) Smoking Status: Never smoker Tobacco Type: Smokeless Tobacco (Dip or Chew) Do You Dip or Chew Tobacco: Yes ( 1 can of [place] per day on average); Hx Alcohol Use: No Hx Substance Use: No Preferred Language: Turkmen Communication Ability: Effective Claim Manager Required: No Beliefs That Will Affect Care: None Current Living Situation: Spouse current occupational status: employed current occupation: building and construction manager Other Information That Helps Us Care for You: No Feels Safe at Home: Yes Safety Concerns: Feels Safe At This Time Assistive Devices: Denture - Upper, Denture - Lower and Glasses Assistive Devices Comment: partial upper and lower dentures Review of Systems Constitutional: no fever, no fatigue and no weakness Eyes: no diplopia, no eye pain and no worsening vision Ear, Nose, Mouth, Throat: no ear pain, no tinnitus, no hearing loss, no dizziness, no hoarseness and no dysphagia Respiratory: no cough and no dyspnea Cardiovascular: no chest pain, no palpitations and no lightheadedness Gastrointestinal: no abdominal pain, no nausea and no vomiting Genitourinary: no dysuria and no urinary incontinence Musculoskeletal: + neck pain; no back pain, no radicular pain, no joint pain and no myalgia Integumentary: no rash and no lesions Neurologic: no gait abnormality, no localized weakness, no generalized weakness, no tingling, no numbness, no tremor(s), no abnormal movements, no headache(s), no abnormal speech, no confusion and no memory loss Psychiatric: no depression, no irritability, no anxiety, no difficulty concentrating, no confusion and no hallucinations Endocrine: no fatigue and no flushing Hematologic / Lymphatic: no easy bleeding and no easy bruising Allergy / Immunological: no urticaria and no problem reported Exam (Neuro) Physical Exam: The patient is right-handed. The patient is awake, alert, and attentive. Speech is normal without any aphasia or dysarthria. She can name objects, repeat phrases, and has normal spontaneous speech. Mentation and thought processes are intact, with orientation to person, place and time, and normal fund of knowledge. Attention and concentration are normal. Mood and affect are normal and appropriate. General appearance and grooming are normal. Short and long-term memory are intact. Pupils are 4 mm bilaterally and reactive to light. Extraocular eye muscles are intact without nystagmus. Visual acuity and visual rico seem normal grossly to confrontation. There are no deficits to sensation in the face in all 3 distributions of the fifth cranial nerve bilaterally. Corneal reflexes are positive bilaterally. Facial strength and symmetry was normal bilaterally. Hearing seems normal to whisper and finger rub bilaterally. Palate moves well without asymmetry. There is normal sternocleidomastoid and trapezius (shoulder shrug) strength bilaterally. Tongue is midline with good strength bilaterally. Neck has a full range of motion without discomfort. There are no cervical bruits bilaterally. There are no cranial or ocular bruits. Heart is without murmur. There is a regular rhythm and rate. Cervical, thoracic, and lumbar spine are nontender to palpation. Balance is normal eyes open or closed. The patient can tandem walk without difficulty. The patient can heal and toe walk normally. With outstretched arms there is no drift. There are no resting, postural, or action tremors. There is no ataxia with finger to nose testing. There is good facility in the hands. No other abnormal involuntary movements are noted. Motor strength is 5/5 diffusely in the arms bilaterally including deltoids, biceps, triceps, brachioradialis, wrist flexors and extensors, fitting room associate, and intrinsic hand muscles. Motor strength is 5/5 diffusely in the legs bilaterally including hip flexors, quadriceps, hamstrings, gastrocnemius, tibialis anterior, tibialis posterior, and Peroneii muscles. Toe extensors are normal and there is good bulk in the extensor digitorum brevis muscles bilaterally. The limbs have good tone without rigidity or spasticity. There is no atrophy noted in the muscles. Muscle bulk is normal, there is no tenderness to p alpation, no myotonia to percussion, and no fasciculations seen. Sensory examination is intact to touch and pin throughout all 4 limbs diffusely. Reflexes are 2/4 in the biceps, triceps, brachioradialis, quadriceps, and Achilles tendons bilaterally. There is no clonus bilaterally. Toes are downgoing with plantar stimulation bilaterally. Peripheral pulses are present and of normal quality distally in all 4 limbs. There is no peripheral edema noted in the limbs. Results & Data ([facility]) Vital Signs (Past 12 Hours) Vital Signs Temp Pulse Pulse Resp BP BP Pulse Ox 03/09/20 07:51 61 03/09/20 07:46 36.5 C 76 18 117/69 97 03/09/20 01:52 68 03/09/20 01:39 36.5 C 68 18 127/74 98 03/09/20 01:00 69 15 107/76 95 03/09/20 00:30 67 18 118/70 96 03/09/20 00:00 71 24 115/73 97 03/08/20 23:30 75 18 117/66 97 03/08/20 23:00 79 18 110/64 99 03/08/20 22:31 85 20 137/74 100 03/08/20 22:30 85 99 03/08/20 22:17 87 17 113/74 100 PG Care Time/CCT Total # of Minutes Spent Total Time Spent with Patient: Total time spent is greater than 50% in coordination of care (as documented) at patient's floor/unit and/or counseling patient: Coding Level of Care Code 03243 Office/OBS Consult Lvl 4 Diagnoses Dizziness R42 Diaphoresis R61 Nausea R11.0 Lumbar radicular pain M54.16 Neck pain M54.2 Time Spent (min) 60
[2020-03-09 10:33] LABS: Basophils # (auto) 0.02 K/uL (0-0.2); Basophils % (auto) 0.3 %; Eosinophils # (auto) 0.21 K/uL (0-0.5); Eosinophils % (auto) 3.1 %; Hematocrit (blood only) 41.6 % (42-52); Hemoglobin 14.1 g/dL (14.0-18.0); Lymphocytes # (auto) 1.98 K/uL (1.2-3.4); Lymphocytes % (auto) 29.4 %; Mean Corpuscular Hemoglobin 30.9 pg (25-34); Mean Corpuscular Hgb Conc 33.9 g/dL (32-36); Mean Corpuscular Volume 91.2 fL (80-100); Mean Platelet Volume 9.3 fL (7.4-10.4); Monocytes # (auto) 0.41 K/uL (0.11-0.59); Monocytes % (auto) 6.1 %; Neutrophils # (auto) 4.11 K/uL (1.4-6.5); Neutrophils % (auto) 61.1 %; Platelet Count 183 K/uL (130-400); RDW Coefficient of Variation 13.8 % (11.5-14.5); RDW Standard Deviation 45.6 fL (36.4-46.3); Red Blood Count 4.56 M/uL (4.7-6.1); White Blood Count 6.73 K/uL (4.8-10.8)
[2020-03-09 10:51] LABS: BUN Creatinine Ratio 14.1 (10-20); Blood Urea Nitrogen 12 mg/dl (7-18); Calcium 8.6 mg/dl (8.5-10.1); Carbon Dioxide 27 mmol/L (21-32); Chloride 109 mmol/L (98-107); Creatinine Clr Calc Pharmacy 111.8 ml/min; Est GFR (African American) 106.5; Est GFR (Non-African American) 91.9; Glucose 97 mg/dl (70-99); Sodium 140 mmol/L (136-145)
[2020-03-09 10:55] LABS: Chol HDL Ratio 5; Cholesterol 187 mg/dl (0-200); HDL Cholesterol 41 mg/dl; LDL Cholesterol Calculated 116 mg/dl; Triglycerides 148 mg/dl (0-150); Troponin I < 0.015 ng/ml (0-0.045); VLDL Cholesterol 30 mg/dl
[2020-03-09] MEDS ORDERED: PERFLUTREN LIPID MICROSPHERE (DEFINITY) IV ONE (10:55)
--- NOTE | 2020-03-09 12:47 | XCELERA ---
[id number]
--- NOTE | 2020-03-09 12:57 | Electrocardiogram Report ---
Test Reason : Blood Pressure : / mmHG Vent. Rate : 073 BPM Atrial Rate : 073 BPM P-R Int : 186 ms QRS Dur : 108 ms QT Int : 396 ms P-R-T Axes : 027 -14 049 degrees QTc Int : 436 ms Normal sinus rhythm Leftward axis Otherwise Normal ECG No previous ECGs available Confirmed by Trevor Rivera ([id number]) on 03/09/2020 12:56:29 PM Referred By: REFERRED SELF Confirmed By:Trevor Rivera
--- NOTE | 2020-03-09 13:54 | Discharge Summary ---
Date of Service March 09, 2020 Admission HPI Per Admitting Provider The patient is a 65-year-old male with no significant past medical history, on no medications, presents to the emergency department with the above symptoms. He is not had these symptoms in the past. Reports that they occurred about 1/2- hour after eating a post Freida meal of ham, mashed potatoes, corn and associated foods. He denies any focal weakness in arms or legs, he denies any loss of bowel or bladder control. He has not taking any prescription or mcuw-ffv-ugpuovo medications. He denies any recent alcohol intake. Admission Exam Per Admitting Provider The patient is awake, alert and oriented 3, well developed and well nourished, normocephalic and atraumatic, lying in bed and in no acute distress. HEENT--PERRL, EOMI, mucous membranes and oropharynx dry. Neck--supple. No JVD. No bruits. Thyroid normal, trachea midline, no adenopathy. Heart--normal S1 and S2. No murmurs, rubs or gallops. Lungs--clear bilaterally, no respiratory distress, no accessory muscle use. Abdomen--normal bowel sounds and soft. Nontender. Nondistended. Obese. Extremities--no cyanosis or clubbing. No edema. Dermatologic--normal skin turgor, normal color, no abnormal lymph nodes, no rash. Neurologic--cranial nerves II through XII grossly intact. Rheumatologic--normal range of motion. Psychiatric--normal affect. Principal Diagnosis Vertigo Discharge Exam General: Lying in bed comfortably in no acute distress HEENT: Normocephalic atraumatic Neck: Normal to visual inspection, trachea midline, did not appreciate significant JVD Cardiac:normal S1, normal S2, regular rate and rhythm, negative pedal edema, negative calf tenderness, did not appreciate any significant murmurs rubs or gallops Respiratory: Clear to auscultation bilaterally with symmetrical chest expansion I did not appreciate significant wheezes, rales, rhonchi, GI: Soft nontender nondistended MSK: Moves all extremities, strength intact, proprioception intact Neuro: Alert and oriented x4, cranial nerves II through XII grossly intact, sensation grossly intact, proprioception grossly intact, cerebellar function grossly intact, vision grossly intact Psych: Calm and cooperative Discharge Data Allergies Allergy/AdvReac Type Severity Reaction Status Date / Time No Known Allergies Allergy Verified 03/08/20 22:16 Consultations 03/08/20 23:10 ED Decision to Admit Stat 03/09/20 01:39 Consult Case Management - Discharge Planning Routine Consult Case Management - Discharge Planning Routine Consult Neurology Routine Ordered Studies 03/08/20 21:22 CT angio head w con Stat CT angio neck with con Stat CT head/brain wo con Stat 03/09/20 00:53 MR brain wo con Routine Hospital Course (1) Stroke-like symptoms: Acute onset of nausea, sweats, dizziness, and feelings of diso rientation's, barely able to lift his head without being more dizzy this occurred approximately half an hour after eating. He was evaluated in the emergency room and admitted for stroke without TPA evaluation. Serial cardiac enzymes are negative, serial EKGs were negative, cardiac rhythm monitoring was negative, 2D echo showed a normal ejection fraction, negative bubble study, CT of the head without contrast was negative, CT of the head and neck was negative, MRI was negative, neurology was consulted recommending MRI, no additional neurological testing and follow-up as an outpatient. Patient was completely symptom-free on discharge -Follow-up with outpatient neurology -We will provide prescription for meclizine please use it as needed for vertigo -Patient endorsed feeling stressed, consider consultation with -You were started on atorvastatin a cholesterol medication, please take 1/day (2) Dizziness: Patient's initial symptom was dizziness, this resolved with ENT administration of meclizine we will send the patient home meclizine prn -Meclizine as needed (3) SOB (shortness of breath): Resolved (4) Diaphoresis: Resolved (5) Nausea: Resolved. We did entertain the idea of possible toxin induced food poisoning, however, patient symptoms resolved unusually quickly for this diagnosis. Total Time Total Time Spent Total Time Spent (In Minutes): 32 Discharge Plan Discharge Items Patient Disposition: Home - Self-Care Reason For Visit: TIA LIKE SYMPTOMS Discharge Diagnosis: dizziness dyspnea Condition on Discharge: Good Activity: Resume your previous activity Non-emergency contact: Primary Care Provider Call non-emergency contact if: you have any medication questions, your symptoms worsen and your temperature is above 101.5 Follow-up/Referrals: Oleksandr Robertson MD [Physician] - (Please call [phone] to schedule a follow-up Neurology appointment within 1-2 weeks. ) PCP,NO [Primary Care Provider] - Diet: Heart Healthy Addtl Attending Provider Instructions: Care instructions: You were admitted to [facility] for treatment of strokelike symptoms determined to be secondary to vertigo. We provided you with a medication called meclizine which is an antinausea/dizziness medication -Take 1 as needed We have also started you on a statin for cholesterol please continue to take it once per day -Atorvastatin 40 mg 1/day please These medications have been called into the [facility] on [address] in [place] A discharge summary will be sent to your primary care physician to ensure continuity of care. Please bring this discharge summary with you to your next office appointment so that your provider can review it at that time. Follow-up appointments: - Keep all your follow-up appointments as already scheduled. If you cannot make an appointment, notify your provider. - Please call to request a follow-up appointment with your primary care physician within one week of discharge. Please let us know if you are unable to obtain an appointment Medications: - Your medication list has been reviewed and reconciled upon discharge to ensure accuracy and continuity of care. - You are provided with a list of all your current medications at this time. Please review this list closely and make note of any changes. - Please take all of your medications exactly as prescribed. - Tell your primary care provider if you cannot afford your medications. - Call your primary care provider if you are having any side effects or any other problems. - Call your primary care provider before taking any over the counter medications or supplements, including herbals and vitamins, because some of these may interact with your current medications and/or make your symptoms worse. Symptoms: Please call your primary care provider for symptoms including, but not limited to: fevers (temperatures greater than 100.4), chills, intractable nausea or vomiting, diarrhea, rash, shortness of breath, bleeding, pain, or if you experience any worsening of the symptoms that brought you to the hospital. For EMERGENCY and VERY SERIOUS health-related issues, such as chest pain, shortness of breath, or sudden onset of the symptoms that brought you to the hospital, you may need to call 911 or go directly to the Emergency Room It has been our privilege to take care of you during your hospital stay. And Above All Else Feel Better! Best Wishes, Rogelio Hunt MD PGY2 Resident, Family & Community Medicine [facility] Residency at [facility] [address], [address] : [address] [place] [address] Pending Studies at Discharge: No Stand-Alone Forms: Medications to Prevent Stroke, My [facility], Smoking Cessation Medications and DC Order Prescriptions: New meclizine 25 mg tablet,chewable 25 mg PO DAILY PRN (Reason: motion sickness) Qty: 30 RF: 0 atorvastatin 40 mg Tablet 40 mg PO QAM Qty: 30 RF: 0 Pharmacist Discharge Consult [Pharmacist Discharge Med Rec Consult] 1 dose Not Applicable UD PRN (Reason: stroke) Qty: 1 RF: 0 No Action No Known Home Medications RF: 0 Discharge Orders: Discharge Order (Routine); Ordered 03/10/20 Ordered By: Aravind Álvarez Admission Data Admit Date/Time: 03/09/20 00:53 Attending Provider: Gerald Sanches Admit Provider: Drew Euceda Primary Care Provider: PCP,NO Other Providers: Drew Euceda ; Oleksandr Robertson Supervising Physician Co-Signing Physician Notes I also saw the patient and confirmed the history and exam. I agree with the resident documentation and instructions. The patient was able to tolerate MRI today with additional pre test medications. He is feeling well today; no recurrence of symptoms. Agree with discharge home and outpatient follow up. Also suggested he reviews his symptoms with his PCP for consideration for outpatient cardiac stress test. Resident Activity Tracking Resident Involvement: Resident Care Provided Care Provided: Adult Hospital Medicine
[2020-03-09] MEDS ORDERED: OPTIRAY 320 125ml IV ONE (17:26)
[2020-03-09] MEDS ORDERED: LORazepam 1.5 MG/3 ML VIAL IV PRN (17:37)
--- NOTE | 2020-03-09 17:43 | CT Scan Report ---
CT ANGIOGRAPHY THE CHEST WITHOUT AND WITH CONTRAST CLINICAL HISTORY: Shortness of breath, stroke like symptoms. POSSIBLE AORTIC DISSECTION. COMPARISON STUDY: Chest x-ray dated 03/08/2020 TECHNIQUE: Noncontrast images were obtained through the chest. Following the IV administration of 119 mL of Optiray-320, CT angiography of the thorax was performed from the thoracic inlet to the lung ba ses. Images are reviewed in the axial, sagittal, and coronal planes. MIP images were acquired. IV con trast was administered without complication. A dose lowering technique was utilized adhering to the principles of ALARA. CT DOSE: 1550.03 mGy.cm FINDINGS: Thyroid: Imaged portions of the thyroid gland are normal in appearance. Thoracic aorta: Noncontrast images reveal no evidence of acute aortic hematoma. Postcontrast images r eveal no evidence of thoracic aortic aneurysm or dissection. Pulmonary vasculature: There is good pulmonary arterial opacification. There are no filling defects t o indicate acute pulmonary embolism. HEART: The heart is normal in size and configuration, without pericardial effusion. There is trace ga s within the main pulmonary artery, likely iatrogenic. Lungs and pleural spaces: There is no pneumothorax. There are no pleural effusions. There is no focal pulmonary consolidation. There are a few scattered pulmonary micronodules, finding of doubtful clini cesario significance. Mediastinum: There is no evidence of pathologic mediastinal lymphadenopathy. Anjelica: There is no evidence of pathologic hilar lymphadenopathy. Axilla: There is no evidence of pathologic axillary lymphadenopathy. Upper abdomen: There is suspected mild hepatic steatosis Skeletal structures: There are no lytic or blastic osseous lesions. IMPRESSION: 1. No acute intrathoracic findings 2. No evidence of thoracic aortic aneurysm or dissection 2. No evidence of acute pulmonary embolism 4. No evidence of focal pulmonary consolidation ACT 112: Negative or not required by law. Electronically signed by: Jalil Hair M.D. 03/09/2020 5:42 PM
[2020-03-09] MEDS ORDERED: SODIUM CHLORIDE 0.9% 500 ML IV SCH (20:00)
[2020-03-10 06:29] LABS: Estimated Average Glucose 117 mg/dl; Hemoglobin A1C 5.7 % (4.5-5.6)
--- NOTE | 2020-03-10 07:50 | Billing Data ---
Date of Service March 09, 2020 Coding Level of Care Code 36704 Subseq Obs Care Lvl 3
[2020-03-10] MEDS: ATORVASTATIN 40 MG TAB PO SCH (08:12)
[2020-03-10] MEDS: ASPIRIN 81 MG ECTAB PO SCH (08:12)
[2020-03-10 08:24] LABS: Basophils # (auto) 0.02 K/uL (0-0.2); Basophils % (auto) 0.3 %; Eosinophils % (auto) 2.9 %; Hematocrit (blood only) 42.9 % (42-52); Hemoglobin 14.3 g/dL (14.0-18.0); Immature Granulocytes # (auto) 0.02 K/uL (0.00-0.02); Immature Granulocytes % (auto) 0.3 %; Lymphocytes # (auto) 1.97 K/uL (1.2-3.4); Lymphocytes % (auto) 28.1 %; Mean Corpuscular Hemoglobin 30.6 pg (25-34); Mean Corpuscular Hgb Conc 33.3 g/dL (32-36); Mean Corpuscular Volume 91.7 fL (80-100); Mean Platelet Volume 9.5 fL (7.4-10.4); Monocytes # (auto) 0.38 K/uL (0.11-0.59); Monocytes % (auto) 5.4 %; Neutrophils # (auto) 4.41 K/uL (1.4-6.5); Platelet Count 171 K/uL (130-400); RDW Coefficient of Variation 13.6 % (11.5-14.5); RDW Standard Deviation 45.2 fL (36.4-46.3); Red Blood Count 4.68 M/uL (4.7-6.1)
[2020-03-10 08:56] LABS: BUN Creatinine Ratio 15.5 (10-20); Calcium 8.7 mg/dl (8.5-10.1); Creatinine Clr Calc Pharmacy 104.4 ml/min; Est GFR (African American) 100.9; Est GFR (Non-African American) 87.1; Potassium 3.8 mmol/L (3.5-5.1)
--- NOTE | 2020-03-10 13:03 | Magnetic Resonance Report ---
MR brain wo con HISTORY: 65 years-old Male stroke workup acute strokelike symptoms COMPARISON: CT head, CTA head and neck studies 03/08/2020 TECHNIQUE: Multiplanar multisequence MRI of the brain was obtained without the use of IV contrast. FINDINGS: Cutter Inspector localizer images demonstrating no gross extracranial abnormality. There is no restricted diffus ion to suggest acute or subacute infarct. Midline structures including the corpus callosum, brainstem , optic chiasm, pituitary and pineal glands appear unremarkable the sagittal T1 series. No cerebellar tonsillar herniation. There is no pathologic blooming artifact on the T2 star series. No acute intracranial hemorrhage, mid line shift, abnormal extra-axial collection, hydrocephalus or intracranial mass. The brain parenchyma is unremarkable. No significant T2/FLAIR signal abnormalities. Cerebral venous sinuses and major art erial flow voids at the level of the skull base appear patent. Unremarkable orbits, skull and soft ti ssues. Trace left mastoid effusion. Paranasal sinuses are generally clear. IMPRESSION: No acute intracranial abnormality, specifically there is no evidence of acute or subacute infarct. ACT 112: Negative or not required by law. The above report was generated using voice recognition software. It may contain grammatical, syntax o r spelling errors. Electronically signed by: Russell Zuniga M.D. 03/10/2020 1:02 PM
[2020-03-10] MEDS ORDERED: STROKE PATIENT DISCHARGE SCH (13:43)
--- NOTE | 2020-03-10 14:23 | Pharmacy Report ---
Pharmacist Stroke Counseling - Date of Service March 10, 2020 - Scope: Pharmacy has been consulted to provide medication discharge counseling for this patient admitted with [ischemic stroke] [hemorrhagic stroke] [transient ischemic attack] as per the Pharmacist Discharge Counseling for Stroke Patients [facility]. - Medications on Discharge: Home Medications Medication Instructions Recorded Confirmed No Known Home Medications 03/08/20 03/08/20 New Rx's Medication Instructions Recorded Pharmacist Discharge Consult 1 dose NOT APPLICABLE UD PRN #1 ml 03/09/20 [Pharmacist Discharge Med Rec Consult] atorvastatin 40 mg PO QAM #30 tab 03/09/20 meclizine 25 mg PO DAILY PRN #30 tab 03/09/20 - Action: The above medications, specifically ones for stroke treatment/prophylaxis, have been reviewed in detail with the patient and/or patient contact center representative(s) prior to discharge. This includes indication, common adverse reactions, drug interactions, and medication administration. Medication counseling has been employed using the teach-back method to ensure understanding. - Outcome: The patient and/or patient contact center representative(s) have demonstrated understanding of the medications. Additional comments: - Counseling done via telephone due to Covid-19 pandemic - Patient seemed very confused during counseling. He told me that he was not being discharged today and that he lived in [place] and used the [facility][1] as his pharmacy. However, his demographics state that he uses [facility] and is from that area. Updated discharging provider. - With that being said, patient was able to demonstrate understanding of new medications via teach back method. Thank you for allowing pharmacy to be involved in the care of this patient. Please call [phone] with any additional questions
--- NOTE | 2020-03-10 18:31 | Electrocardiogram Report ---
Test Reason : Blood Pressure : / mmHG Vent. Rate : 063 BPM Atrial Rate : 063 BPM P-R Int : 174 ms QRS Dur : 102 ms QT Int : 410 ms P-R-T Axes : 024 -24 044 degrees QTc Int : 419 ms Normal sinus rhythm Normal ECG When compared with ECG of 08-MAR-2020 21:16, No significant change was found Confirmed by Lee Helton ([id number]) on 03/10/2020 6:31:03 PM Referred By: REFERRED SELF Confirmed By:Rk Helton
== END 2020-03-10 15:02 | disposition home or self-care (01) ==
LOC: 2N 21:08 → ED 21:08 → SUATTDRO 03-09 00:53 → 2N 03-09 01:24